=== PATIENT | male | born 1950 | race Caucasian/White ===

== ENCOUNTER 2018-12-20 01:25 | Outpatient (CLI) | payer MEDICARE, OTHER, SELFPAY ==
[2018-12-20 10:43] LABS: HCT 51.6 % (40.0-50.0); HGB 17.3 g/dL (13.5-17.5); Mean Corp. HGB Concentration 33.5 g/dL (32.0-36.0); Mean Corpuscular Hemoglobin 32.7 pg (27.0-33.0); Mean Corpuscular Volume 97.5 fL (80-95); Mean Platelet Volume 12.9 fL (8.0-11.0); Platelet Count 167 x1000/uL (130-400); RBC 5.29 m/cumm (4.50-6.00); RBC Distribution Width 12.6 % (11.8-14.1); White Blood Cell Count 11.91 k/cumm (4.4-10.8)
[2018-12-20 11:07] LABS: HDL Cholesterol 27 mg/dL (40-60); Triglyceride 113 mg/dL (30-150)
[2018-12-20 11:20] LABS: Calculated LDL 46; Cholesterol 95 mg/dL (50-200)
[2018-12-20 11:35] LABS: C-Reactive Protein 0.22 mg/dL (0.0-0.3); ESR 16 MM/HR (1-20)
== END 2018-12-20 01:45 ==
PROVIDERS: PCP Family Medicine; Visit Provider Family Medicine
DX: I25.10 Atherosclerotic heart disease of native coronary artery without angina pectoris (principal); Z95.5 Presence of coronary angioplasty implant and graft; M19.90 Unspecified osteoarthritis, unspecified site
CPT/HCPCS: 36415; 80061; 83721; 85027; 85652; 86140

== ENCOUNTER 2019-08-26 11:04 | Outpatient (CLI) | payer MEDICARE, SELFPAY ==
--- NOTE | 2019-08-26 15:30 | DI.RAD_ITS ---
EXAM: XR HAND LT COMPLETE CLINICAL HISTORY: LEFT THUMB AND HAND PAIN M79.642 TECHNIQUE: COMPARISON: No exams were available for comparison FINDINGS: Three views were obtained. There are degenerative changes at the greater multangular 1st metacarpal joint with marked narrowing of the cartilaginous joint space and prominent marginal osteophyte format ion the adjacent bones. Mild DJD of the IP joints noted. 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
--- NOTE | 2019-08-26 15:30 | DI.RAD_ITS ---
EXAM: XR CHEST 2V PA LATERAL CLINICAL HISTORY: cough R05 TECHNIQUE: COMPARISON: CHEST 2 VIEWS PA,LAT from 09/23/2016 CHEST 2 VIEWS PA,LAT from 09/20/2017 FINDINGS: The heart is not enlarged. There appear to be bibasilar changes pulmonary scarring and there are dif fuse changes of COPD. No focal consolidation. No pleural effusion IMPRESSION: Presumed COPD, no evidence of acute process. No change from 09/23/2016.
--- NOTE | 2019-08-26 15:30 | DI.RAD_ITS ---
EXAM: XR SHOULDER LT COMPLETE 2+V CLINICAL HISTORY: left shoulder pain M25.512 TECHNIQUE: COMPARISON: No exams were available for comparison FINDINGS: Five views were obtained. There are mild hypertrophic degenerative changes of the acromial clavicula r and glenohumeral joints. No other significant bony or soft tissue abnormality seen. IMPRESSION:
== END 2019-08-26 11:24 ==
PROVIDERS: PCP Family Medicine; Visit Provider Family Medicine
DX: M25.512 Pain in left shoulder (principal); M79.642 Pain in left hand; R05 Cough; J44.9 Chronic obstructive pulmonary disease, unspecified; M19.012 Primary osteoarthritis, left shoulder; M19.042 Primary osteoarthritis, left hand
CPT/HCPCS: 71046; 73030; 73130

== ENCOUNTER 2019-12-23 01:33 | Outpatient (CLI) | payer MEDICARE, SELFPAY ==
[2019-12-23 15:55] LABS: Mean Corpuscular Hemoglobin 33.1 pg (27.0-33.0); Mean Corpuscular Volume 97.3 fL (80-95); Platelet Count 207 x1000/uL (130-400); RBC 5.14 m/cumm (4.50-6.00); RBC Distribution Width 12.6 % (11.8-14.1); White Blood Cell Count 13.56 k/cumm (4.4-10.8)
[2019-12-23 16:41] LABS: CREATININE 0.99 mg/dL (0.70-1.30); Calculated LDL 51 mg/dL (<100); Cholesterol 106 mg/dL (<200); HDL Cholesterol 27 mg/dL (40-60); Triglyceride 143 mg/dL (<150)
== END 2019-12-23 01:53 ==
PROVIDERS: PCP Family Medicine; Visit Provider Family Medicine
DX: E78.5 Hyperlipidemia, unspecified (principal); I25.10 Atherosclerotic heart disease of native coronary artery without angina pectoris
CPT/HCPCS: 36415; 80061; 85027; 82565

== ENCOUNTER 2020-12-16 03:14 | Outpatient (CLI) | payer MEDICARE, SELFPAY ==
[2020-12-16 13:08] LABS: Calculated LDL 52 mg/dL (<100); Cholesterol 102 mg/dL (<200); HDL Cholesterol 35 mg/dL (40-60); Triglyceride 77 mg/dL (<150)
== END 2020-12-16 03:15 | disposition home or self-care (01) ==
PROVIDERS: PCP Family Medicine; Visit Provider Family Medicine
DX: E11.65 Type 2 diabetes mellitus with hyperglycemia (principal); E78.5 Hyperlipidemia, unspecified
CPT/HCPCS: 36415; 80061; 82565